=== PATIENT | male | born 1985 | race Caucasian/White ===

== ENCOUNTER 2021-05-19 18:04 | Emergency (ER) | payer BC, SELFPAY ==
--- NOTE | ~2021-05-19 | XR_ITS ---
EXAMINATION: XR chest 2V DATE: 05/19/2021 18:45 INDICATION: Cough TECHNIQUE: PA and lateral views of the chest are obtained. COMPARISON: None available FINDINGS: There are minimal airspace opacities of the lower lobes. There is no pleural effusion or pn eumothorax. The cardiomediastinal silhouette is normal. The visualized bones and soft tissues are unr emarkable. IMPRESSION: 1. Minimal airspace opacities of the lower lobes, consistent with atelectasis versus pneumonia. Reviewed, dictated and finalized at location [facility]. [facility] IMPRESSION: 1. Minimal airspace opacities of the lower lobes, consistent with atelectasis v ersus pneumonia.
--- NOTE | 2021-05-19 18:11 | ED.URI ---
HPI - URI/Sore Throat General Chief Complaint: Upper Respiratory Infection Stated Complaint: Cough/Body Aches/ Fever Time Seen by Provider: 05/19/21 18:11 Source: patient and RN notes reviewed History of Present Illness HPI Narrative: Patient is a 36-year-old male who presents the urgent care with complaints of body aches, cough, fever and chills. Patient states that his symptoms started on 07 May and he seemed to be getting better. Patient states over the last 24 hours he has had severe coughing with intermittent shortness of breath. Patient denies of any known exposures. Patient was not COVID vaccinated. Denies any chest pain. No other acute complaints. No acute distress noted. Patient aware of the plan of care. Some parts of this dictation were generated by voice recognition software and may contain typographical and/or grammatical inaccuracies. Related Data Allergies Allergy/AdvReac Type Severity Reaction Status Date / Time No Known Allergies Allergy Verified 05/19/21 18:37 Review of Systems Review of Systems: CONSTITUTIONAL: Reports of fever, chills, sweats EYES: Denies visual changes, redness, or discharge. ENT: Reports of congestion and sore throat CARDIOVASCULAR: Denies chest pain, palpitations, or edema. RESPIRATORY: Reports of worsening cough with intermittent dyspnea GASTROINTESTINAL: Denies abdominal pain, nausea, vomiting, or diarrhea. GENITOURINARY: Denies dysuria or hematuria. SKIN: Denies rash or itching. MUSCULOSKELETAL: Denies back pain, joint pain. Reports body aches NEUROLOGIC: Denies headache, numbness, or weakness. All other systems reviewed are negative, except as documented in HPI. PMFSH Comments At the time of my signature, I reviewed and agree with the nursing past medical, surgical, social, and family history. There is no relevant family history pertinent to the patient complaint. Exam Narrative: GENERAL: This is a well-nourished, well-developed patient, in no apparent distress. HEAD: normocephalic, atraumatic. EYES: PERRL. Sclera clear/white. Vision is grossly intact. EARS: External ears normal, auditory canals clear and without drainage, TMs normal without perforation. Hearing grossly intact. NOSE: External nose normal with no obvious nasal discharge, nares without redness, no rhinorrhea. THROAT: Mucous membranes moist. Moderate erythema to the posterior pharynx with moderate bilateral tonsillar edema/erythema with exudate and moderate postnasal drainage NECK: Neck supple CARDIOVASCULAR: Regular rate and rhythm without murmurs, gallops, or rubs. RESPIRATORY: crackles throughout with inspiratory wheeze to the left upper lobe and bibasilar diminished GASTROINTESTINAL: Abdomen soft, non-tender, nondistended. Bowel sounds are active. No hepato-splenomegaly, or palpable masses. No guarding. SKIN: Flushed and slightly diaphoretic with good texture and turgor NEURO: awake, alert, and oriented to person, place and time. There were no obvious focal neurologic abnormalities. EXTREMITIES: No clubbing, cyanosis, or edema. Course Course Level of Care: Express Care Visit Vital Signs Vital signs: Vital Signs Temperature 98.7 F 05/19/21 18:20 Pulse Rate 93 05/19/21 18:20 Respiratory Rate 20 05/19/21 18:20 Blood Pressure 130/77 05/19/21 18:20 Pulse Oximetry 99 05/19/21 18:20 Temperature 98.7 F 05/19/21 18:20 Pulse Rate 93 05/19/21 18:20 Respiratory Rate 20 05/19/21 18:20 Blood Pressure 130/77 05/19/21 18:20 Pulse Oximetry 99 05/19/21 18:20 Reviewed MDM - URI/Sore Throat MDM Narrative Medical decision making narrative: Reviewed lab results with the patient. He is aware that this x-ray does show opacities in the lower lobes however it is more consistent with atelectasis (not taking deep breaths) versus pneumonia. Aware that strep swab was negative. Educated patient on culture however we will not call for a positive culture considering you will be treated with az
[2021-05-19 18:20] VITALS: BP 130/77; PULSE 93; RESP 20; TEMP 37.1; O2SAT 99
== END 2021-05-19 19:10 | disposition home or self-care (01) ==
PROVIDERS: Emergency Provider Nurse Practitioner Family; PCP Family Medicine
DX: J40 Bronchitis, not specified as acute or chronic (principal); J03.90 Acute tonsillitis, unspecified
CPT/HCPCS: 71046; 87081; 87880; 99203; G0463

== ENCOUNTER 2024-12-15 13:48 | Emergency (ER) | payer BC, SELFPAY ==
[2024-12-15 14:09] VITALS: BP 157/83; PULSE 79; RESP 16; TEMP 36.9; O2SAT 100
[2024-12-15 14:14] LABS: EDSTREPNEGPOS1 Negative (Negative)
--- NOTE | 2024-12-15 14:14 | ED_ITS ---
HPI - URI/Sore Throat General Chief Complaint: Upper Respiratory Infection Stated Complaint: Sore Throat Time Seen by Provider: 12/15/24 14:14 Source: patient Mode of arrival: ambulatory Limitations: no limitations History of Present Illness HPI Narrative: 39 yo M presents with c/o sore throat for 3 days. Afebrile. Swallowing normally. All systems reviewed and negative except as noted above. Related Data Allergies Allergy/AdvReac Type Severity Reaction Status Date / Time No Known Allergies Allergy Verified 05/19/21 18:37 PMFSH Comments At time of signature, agree with nursing past medical, surgical, social and family history. There is no relevant family history pertinent to the presenting complaint. Exam Narrative: GENERAL: This is a well-nourished, well-developed patient, in no apparent distress. HEAD: normocephalic, atraumatic. EYES: PERRL. Sclera clear/white. Vision is grossly intact. EARS: External ears normal, auditory canals clear and without drainage, TMs nor mal without perforation. Hearing grossly intact. NOSE: External nose normal with no obvious nasal discharge, nares without redness, no rhinorrhea. THROAT: Mucous membranes moist, tonsils 3+ bilaterally with erythema and exudates NECK: Neck supple, non-tender without lymphadenopathy, masses or thyromegaly. CARDIOVASCULAR: Regular rate and rhythm without murmurs, gallops, or rubs. RESPIRATORY: Clear to auscultation. Breath sounds equal bilaterally. No wheezes, rales, or rhonchi. SKIN: warm, Dry, intact with no suspicious lesions or rash, good texture and turgor. NEURO: awake, alert, and oriented to person, place and time. There were no obvious focal neurologic abnormalities. EXTREMITIES: No joint tenderness, effusion, or edema noted. Course Course Level of Care: Express Care Visit Vital Signs Vital signs: Vital Signs Temperature 36.9 C 12/15/24 14:09 Pulse Rate 79 12/15/24 14:09 Respiratory Rate 16 12/15/24 14:09 Blood Pressure 157/83 H 12/15/24 14:09 Pulse Oximetry 100 12/15/24 14:09 Oxygen Delivery Room Air 12/15/24 14:09 Temperature 36.9 C 12/15/24 14:09 Pulse Rate 79 12/15/24 14:09 Respiratory Rate 16 12/15/24 14:09 Blood Pressure 157/83 H 12/15/24 14:09 Pulse Oximetry 100 12/15/24 14:09 Oxygen Delivery Room Air 12/15/24 14:09 reviewed MDM - URI/Sore Throat MDM Narrative Medical decision making narrative: negative rapid strep. Strep culture ordered. Will treat patient with antibiotic due to exam findings. Differential Diagnosis Differential diagnosis: Likely upper respiratory infection, sinusitis, viral infection and pharyngitis Lab Data Labs: Lab Results 12/15/24 Range/Units 14:13 POC Grp A Strep Screen Negative (Negative) Discharge Plan Discharge Clinical Impression: Acute bacterial tonsillitis Patient Disposition: Home Condition: Stable Instructions: Antibiotic Form, Tonsillitis (ED) Additional Instructions: Take antibiotic as prescribed until gone. Change toothbrush after taking antibiotic for 24 hours. Take ibuprofen or Tylenol every 6-8 hours as needed for pain. Drink at least 64 oz of water a day. See your doctor if not improving. Patient Language: Kyrgyz Prescriptions: New amoxicillin 875 mg tablet 875 mg PO Q12H 10 Days Qty: 20 0RF methylprednisolone [Medrol (Jared)] 4 mg tablets,dose pack See Rx Instructions PO .COMPLEX Qty: 21 0RF Rx Instructions: orally per package directions No Action azithromycin 500 mg tablet 500 mg PO DAILY 5 Days Qty: 5 0RF Follow-up/Referrals: PHYSICIAN,REFRIGERATION TECH [Primary Care Provider] - Stand Alone Forms: Work/School Release IP Time of Disposition: 14:19
== END 2024-12-15 14:25 | disposition home or self-care (01) ==
PROVIDERS: Emergency Provider Nurse Practitioner Family
DX: J03.90 Acute tonsillitis, unspecified (principal)
CPT/HCPCS: 87081; 87880; 99213; G0463

== ENCOUNTER 2024-12-26 08:54 | Emergency (ER) | payer BC, SELFPAY ==
--- NOTE | 2024-12-26 09:02 | ED_ITS ---
HPI - URI/Sore Throat General Chief Complaint: Upper Respiratory Infection Stated Complaint: Bacterial Tonsillitis Time Seen by Provider: 12/26/24 09:20 Source: patient Mode of arrival: ambulatory Limitations: no limitations History of Present Illness HPI Narrative: Thang is a 39-year-old male patient presenting to the clinic today with complaints of sore throat x2 weeks. He reports he was seen on December 15 and diagnosed with bacterial tonsillitis was given prescription for methylprednisone and 10 day course of amoxicillin. Patient has finished all medications. He reports his symptoms have slightly improved however he still has a mild sore throat rating it a 2/10 currently. Denies any fevers, chills, body aches. No trouble swallowing. Does have some exudate remaining to the bilateral tonsils with mild tonsillar swelling. Denies any fatigue. No URI symptoms. Related Data Allergies Allergy/AdvReac Type Severity Reaction Status Date / Time No Known Allergies Allergy Verified 12/26/24 09:23 Review of Systems Review of Systems: Pertinent positives per HPI. Patient denies any fever, chills, rash, headache, visual changes, dizziness, cough, shortness of breath, chest pain, palpitations, nausea, vomiting, diarrhea, constipation, abdominal pain, or any urinary issues. PMFSH Comments At the time of my signature, I reviewed and agree with the nursing past medical, surgical, social, and family history. There is no relevant family history pertinent to the patient complaint. Exam Narrative: General: Well-developed, well nourished, in no apparent distress Head: Normocephalic, atraumatic Eyes: Pupils equally round and reactive to light bilaterally, EOM intact, sclera and conjunctive clear, no discharge, lids normal Ears: TMs intact and clear, ear canals clear, no drainage, grossly hearing normal. Nose: Nares patent, no discharge, no inflammation, no sinus tenderness. Mouth: Oral pharynx red with mild bilateral tonsillar enlargement with bilateral exudate, good dentition, MMM. Neck: Supple, trachea midline, mild enlargement of anterior cervical nodes, no thyroid masses or goiter palpable. Cardio: Regular rate and rhythm, s1 and s2 normal, no murmur appreciated. Resp: Clear to auscultation bilaterally, no rhonchi, rales, wheezing or rubs Course Course Emergency Course: Portions of this record may have been created with voice recognition software. Level of Care: Express Care Visit Vital Signs Vital signs: Vital Signs Temperature 36.6 C 12/26/24 09:16 Pulse Rate 89 12/26/24 09:16 Respiratory Rate 20 12/26/24 09:16 Blood Pressure 152/86 H 12/26/24 09:16 Pulse Oximetry 100 12/26/24 09:16 Oxygen Delivery Room Air 12/26/24 09:16 Temperature 36.6 C 12/26/24 09:16 Pulse Rate 89 12/26/24 09:16 Respiratory Rate 20 12/26/24 09:16 Blood Pressure 152/86 H 12/26/24 09:16 Pulse Oximetry 100 12/26/24 09:16 Oxygen Delivery Room Air 12/26/24 09:16 Vital signs reviewed MDM - URI/Sore Throat MDM Narrative Medical decision making narrative: At the time of visit patient is resting comfortably on the exam table. Patient appears to be nontoxic. Complaints of sore throat x2 weeks. He reports he was seen on December 15 and diagnosed with bacterial tonsillitis was given prescription for methylprednisone and 10 day course of amoxicillin. Patient has finished all medications. He reports his symptoms have slightly improved however he still has a mild sore throat rating it a 2/10 currently. Denies any fevers, chills, body aches. No trouble swallowing. Does have some exudate remaining to the bilateral tonsils with mild tonsillar swelling. Denies any fatigue. No URI symptoms. On exam patient has mild cervical lymphadenopathy with some exudate remaining to the bilateral tonsils with mild tonsillar swelling. No fevers or cough. Patient just finished all amoxicillin and methylprednisone. Rutherford testing was ordered. Labs: Rutherford testing was ordered and negative in the clinic today. Plan: I suspect patient has exudative pharyngitis. Centor criteria is 3-4. Will go ahead and treat with Augmentin and have patient follow-up with ENT. Patient requesting a repeat steroids and this was declined at this time as he has mild tonsillar enlargement in no difficulty swallowing. Supportive measures were discussed with the patient and they voiced understanding discharge instructions and agrees to treatment plan. Return precautions reviewed Differential Diagnosis Differential diagnosis: Likely upper respiratory infection, otitis media, sinusitis, viral infection, bronchitis, influenza and pharyngitis Lab Data Labs: Lab Results 08/19/25 Range/Units 09:40 POC Monoscreen Negative (Positive) Discharge Plan Discharge Clinical Impression: Exudative tonsillitis Patient Disposition: Home Condition: Stable Instructions: Antibiotic Form, Tonsillitis (ED) Additional Instructions: Centor criteria 3/4. Just finished up antibiotics. Rutherford testing was negative in the clinic today. Take prescription medications only as prescribed-Augmentin Recommend taking a daily probiotic 2 hours before 2 hours after taking 1 the doses of antibiotics. Increase fluids and stay well hydrated May take Tylenol or motrin as directed on bottle for pain/fever Cepacol spray, cough drops, throat lozenges, warm tea with honey/lemon, gargle salt water to soothe throat Go to the ED if you develop a worsening in your condition- high fever not controlled by Tylenol or Motrin, dehydration, weakness, lethargy, shortness of breath, or chest pain. Follow up with your PCP in 3-5 days if symptoms persist. Follow-up with ENT provider- Patient Language: Serbian Prescriptions: New amoxicillin-pot clavulanate 875-125 mg tablet 1 tablet PO Q12H 10 Days Qty: 20 0RF Follow-up/Referrals: Antoine Parra MD [Physician, Ear, Nose, Throat] - 1 Week Referral Note: Recurrent tonsillitis Clinical Impression: Exudative tonsillitis UNKNOWN,DOCTOR [Primary Care Provider] Stand Alone Forms: Work/School Release IP Time of Disposition: 09:40 Quality NIHSS Nursing Documentation ED NIHSS nursing documentation: reviewed/agree
[2024-12-26 09:16] VITALS: BP 152/86; PULSE 89; RESP 20; TEMP 36.6; O2SAT 100
[2024-12-26 09:41] LABS: EDMONONEGPOS Negative (Positive)
== END 2024-12-26 09:51 | disposition home or self-care (01) ==
PROVIDERS: Emergency Provider Nurse Practitioner Family
DX: J03.90 Acute tonsillitis, unspecified (principal)
CPT/HCPCS: 36416; 86308; 99213; G0463